=== PATIENT | male | born 1960 | race African-American/Black ===

== ENCOUNTER → 2018-08-22 | Day surgery (SDC) | payer OTHER ==
[~2018-08-22] MED LIST: CEFTRIAXONE SOD 1 GM/NS 50 ML 50 ML IV ONE; DEXAMETHASONE SOD PHOS INJ 4 MG/ML VIAL ONE; FENTANYL CITRATE/PF 100MCG/2 ML INJ ONE; FLOMAX0.4 MG PO; GENTAMICIN SULFATE 200 MG in SODIUM CHLORIDE 0.9% 100 ML 100 ML IV ONE; LIDOCAINE HCL 2% LOCAL INJ 5 ML SDV VIAL INJ ONE; LIPITOR20 MG PO; METFORMIN HCL500 MG PO; ONDANSETRON HCL INJ 2MG/ML 2ML 2 MG/ML VIAL ONE; PROPOFOL IV EMULSION 10 MG/ML 20 ML VIAL ONE; SEVOFLURANE INHAL SOLN 250 ML PEN BTL ONE
--- OUTSIDE RECORDS SUMMARY | 2018-08-22 07:17 | XMS REPORT | Clinical Summary ---
Author Author [facility] Organization [facility] Address Unknown Phone Unavailable Care Team Providers Care Cabin Agent Name Role Phone Sonny Navarro MD PCP Allergies No Known Allergies Medications End Date Status Medication Sig Dispensed Refills Start Date Active pantoprazole (PROTONIX) TAKE 1 TABLET 30 tablet 2 40 MG EC tablet BY MOUTH 1 7 HOUR BEFORE LUNCH Active atorvastatin (LIPITOR) 40 40 mg daily. 0 MG tablet 7 Active metFORMIN XR daily with 0 (GLUCOPHAGE-XR) 500 mg 24 breakfast. 8 hr tablet Active Problems Problem Noted Date Internal hemorrhoids 06/21/2017 Diaphragmatic hernia without obstruction and without gangrene 06/21/2017 Tubular adenoma of colon 06/21/2017 Diverticulosis large intestine w/o perforation or abscess w/o bleeding 06/21/2017 Encounters Care Team Description Date Type Specialty Sonny Navarro MD Litaker, Jennifer L, RD Diabetes mellitus without complication (Primary Dx) 01/31/2018 Consult Weight Management Malaika Rendon MD Litaker, Jennifer L, RD Diabetes mellitus without complication (Primary Dx) 01/17/2018 Consult Weight Management after 08/21/2017 Social History Date Tobacco Use Types Packs/Day Years Used Current Some Day Smoker Cigars Smokeless Tobacco: Never Used Comments: rarely Alcohol Use Drinks/Week oz/Week Comments Yes occasionally Sex Assigned at Date Recorded Not on file Industry Job Start Date Occupation Not on file Not on file Not on file Travel End Travel History Travel Start No recent travel history available. Last Filed Vital Signs Time Taken Vital Sign Reading - Blood Pressure - - Pulse - - Temperature - - Respiratory Rate - - Oxygen Saturation - - Inhaled Oxygen - Concentration 01/31/2018 7:04 PM CDT Weight 105 kg (232 lb 6.4 oz) 01/31/2018 7:04 PM CDT Height 185.4 cm (6' 1") 01/31/2018 7:04 PM CDT Body Mass Index 30.66 Plan of Treatment Health Maintenance Due Date Last Done Comments DIABETIC RETINAL EYE EXAM 1960 DIABETIC FOOT EXAM 1968 URINE MICROALBUMIN 1968 COLON CANCER SCREENING 2008 SHINGLES VACCINES (#1) 2008 INFLUENZA VACCINE 12/06/2018 Goals Goal Patient Associated Recent Progress Patient-Stat Author Goal Type Problems ed? HM WM Monitoring General No Rekha Valencia RD Note: 01/31/18 Active Will monitor my blood glucose levels 2x/day three times per week HM WM Nutrition General No Rekha Valencia RD Note: 01/31/18 Active Will count my carbohydrates at most of my meals and snacks HM WM Taking Medications General Rekha Escalante RD Note: 01/31/18 Active I will take my medications as scheduled. HM WM Other General No Rekha Valencia RD Note: 01/31/18 Active I will monitor my blood sugar regularly to look for patterns. Results Not on fileafter 08/21/2017 Insurance Payer Benefit Subscriber ID Type Phone Address Plan / Group AETNA AETNA PPO xxxxxxxxxx PPO OPEN CHOICE Advance Directives Patient has advance care planning documents on file. For more information, sharon russo contact: Deandre Knott [address] [place] [address]
[2018-08-22 11:00] VITALS: BP 130/80
--- NOTE | 2018-08-22 17:45 | Operative Report ---
DATE OF PROCEDURE: 08/22/2018 SURGEON: Ronny Mayes MD PREOPERATIVE DIAGNOSES: 1. Benign prostatic hypertrophy. 2. Rule out carcinoma of the prostate. 3. Prostatic intraepithelial neoplasia, left base. OPERATIONS: 1. Transrectal ultrasound of the prostate. 2. Transrectal ultrasound-guided needle biopsies. 3. Cystourethroscopy. BUSINESS ASST: Dr. Jc Damon. ANESTHETIC: General. DESCRIPTION OF PROCEDURE: Mr. Ríos is a 58-year-old male, who presented with a chief complaint of lower urinary tract obstructive symptoms and elevated PSA. This patient has had prostate needle biopsies about six months ago, which showed PIN in the left base. He presented at this time and his PSA has been increasing. This patient was placed on the table in the lithotomy position and transrectal ultrasound of the prostate was performed and the prostate measured 5.68 x 6.1 x 3.7 with a total volume of 31 mL. There were multiple calcification and post calcification shadowing. Both seminal vesicles were unremarkable. This patient was then prepped and draped in a sterile manner. A #23-Andorran cystoscope was used and cystourethroscopy was performed and it was noted that the urethra was normal. The prostatic urethra was inspected and it measured about 5 to 6 cm, trilobar, and occlusive. Cystoscopy was then performed using both right angle and the Foroblique lens, and it was noted that the bladder mucosa was normal with no evidence of gross tumor pathology or any papillary lesions. The bladder wall was mildly trabeculated. The bladder was drained. Cystoscope removed and the patient taken to the recovery room in satisfactory condition. Plan is for this patient is to be placed on Levaquin 500 mg once a day for one week. Ultracet tablet one every 6 to 8 hours p.r.n. and was given 20. He is to return to the office in about one week. Ronny Mayes MD MA/INES /[id number]
--- NOTE | 2018-08-23 23:51 | Diagnostic Imaging Report ---
TECHNIQUE: Transrectal ultrasound of the prostate. Rule out malignancy, biopsy guidance ^[id number] ^0900 FINDINGS: The seminal vesicles are present and unremarkable. The gland size measures 2.9 x 4.5 x 4.6 cm. The volume is 31.51 cm3. The peripheral zone is homogeneous without focal nodules. The transition zone demonstrates prominent BPH nodules particularly in the left lobe. IMPRESSION: As above. Signed by: Dr. Aicha Denise MD on 08/23/2018 11:48 PM
== END | disposition home or self-care (01) ==
LOC: OR 07:14
PROVIDERS: ATTEND Specialist
DX: N40.0 Benign prostatic hyperplasia without lower urinary tract symptoms (principal); N42.31 Prostatic intraepithelial neoplasia; R73.03 Prediabetes; E78.00 Pure hypercholesterolemia, unspecified; Z01.810 Encounter for preprocedural cardiovascular examination
CPT/HCPCS: 36415; 55700; 76872; 76942; 76998; 82948; 88305; 93005; J0696; J1100; J1580; J2001; J2405; J2704; 88304

== ENCOUNTER 2018-12-12 07:23 | Inpatient (IN) | payer OTHER ==
[2018-12-11 11:47] LABS: INR 0.86; PROTHROMBIN TIME 12.2 seconds (11.9-14.5)
[2018-12-11 12:00] LABS: ANION GAP 14.3 mmol/L (8-16); BLOOD UREA NITROGEN 18 mg/dL (7-26); BUN/CREATININE RATIO 14 (6-25); CALCIUM 9.4 mg/dL (8.4-10.2); CARBON DIOXIDE 24 mmol/L (22-29); CHLORIDE 105 mmol/L (98-107); CREATININE, SERUM 1.25 mg/dL (0.72-1.25); EST GLOMERULAR FILTRATION RATE > 60 ML/MIN (60-); GLUCOSE 118 mg/dL (74-118); POTASSIUM 4.3 mmol/L (3.5-5.1); SODIUM 139 mmol/L (136-145)
[2018-12-11 13:47] LABS: BASOPHILS % 0.8 % (0.0-1.0); EOSINOPHILS # (AUTO) 0.1 (0.0-0.4); EOSINOPHILS % 2.5 % (0.0-6.0); HEMATOCRIT 41.6 % (38.2-49.6); HEMOGLOBIN 13.8 g/dL (14.0-18.0); LYMPHOCYTES % 40.7 % (18.0-39.1); MEAN CORPUSCULAR HEMOGLOBIN 30.9 pg (28-32); MEAN CORPUSCULAR HGB CONC 33.2 g/dL (31-35); MEAN CORPUSCULAR VOLUME 93.3 fL (81-99); MONOCYTES # (AUTO) 0.3 (0.2-0.8); MONOCYTES % 6.4 % (4.4-11.3); NEUTROPHILS # (AUTO) 2.4 (2.1-6.9); NEUTROPHILS % 49.4 % (38.7-80.0); PLATELET COUNT 211 x10e3/uL (140-360); RED BLOOD COUNT 4.46 x10e6/uL (4.3-5.7); RED CELL DISTRIBUTION WIDTH 12.8 % (11.7-14.4)
[~2018-12-12] VITALS: Ht 185.4 cm; Wt 107.5 kg
[~2018-12-12 07:23] MED LIST changes: -CEFTRIAXONE SOD 1 GM/NS 50 ML 50 ML IV ONE; -DEXAMETHASONE SOD PHOS INJ 4 MG/ML VIAL ONE; -FENTANYL CITRATE/PF 100MCG/2 ML INJ ONE; -GENTAMICIN SULFATE 200 MG in SODIUM CHLORIDE 0.9% 100 ML 100 ML IV ONE; -LIDOCAINE HCL 2% LOCAL INJ 5 ML SDV VIAL INJ ONE; -ONDANSETRON HCL INJ 2MG/ML 2ML 2 MG/ML VIAL ONE; -PROPOFOL IV EMULSION 10 MG/ML 20 ML VIAL ONE; -SEVOFLURANE INHAL SOLN 250 ML PEN BTL ONE
--- OUTSIDE RECORDS SUMMARY | 2018-12-12 07:30 | XMS REPORT ---
Author Author [facility] Address Unknown Phone Unavailable Care Team Providers Care Beading Sawyer Name Role Phone Jak CORONA Unavailable Unavailable Problems This patient has no known problems. Allergies, Adverse Reactions, Alerts This patient has no known allergies or adverse reactions. Medications This patient has no known medications. Results Test Description Test Time Test Comments Text Results Atomic Results Result Comments PROSTATE-TRANSRECTAL 2018-08-23 23:44:00 [place] [id number] Patient Name: ALFRED JONES MR #: [id number] : 1960 Age/Sex: 58/M Req #: [id number] [facility] Physician: Ordered by: JAIRO CORONA MD Report #: [id number] Location: OR Room/Bed: Procedure: [id number] US/US PROSTATE-TRANSRECTAL Exam Date: 08/22/18 Exam Time: 899 REPORT STATUS: Signed TECHNIQUE: Transrectal ultrasound of the prostate. Rule out malignancy, biopsy guidance [id number] FINDINGS: The seminal vesicles are present and unremarkable. The gland size measures 2.9 x 4.5 x 4.6 cm. The volume is 31.51 cm3. The peripheral zone is homogeneous without focal nodules. The transition zone demonstrates prominent BPH nodules particularly in the left lobe. IMPRESSION: As above. Signed by: Dr. Aicha Denise MD on 08/23/2018 11:48 PM Dictated By: AICHA DENISE MD 47 Transcribed By: ELIZABETH on 08/23/182347 COPY TO: JAIRO CORONA MD
--- OUTSIDE RECORDS SUMMARY | 2018-12-12 07:30 | XMS REPORT | Clinical Summary ---
Author Author [facility] Organization [facility] Address Unknown Phone Unavailable Care Team Providers Care Fast Food Fry Cook Name Role Phone Sonny Navarro MD PCP [...] (Primary Dx) 01/17/2018 Consult Weight Management after 12/11/2017 Social History Date Tobacco Use Types Packs/Day [...] DIABETIC FOOT EXAM 1968 URINE MICROALBUMIN 1968 COLONOSCOPY SCREENING 2008 SHINGLES VACCINES (#1) 2008 INFLUENZA [...] and snacks HM WM Taking Medications General No Rekha Valencia RD Note: 01/31/18 Active I will take my medications as scheduled. HM WM Other General No Rekha Valencia RD Note: 01/31/18 Active I will monitor my blood sugar regularly to look for patterns. Results Not on fileafter 12/11/2017 Insurance Type Payer Benefit Subscriber ID Effective Phone Address Plan / Dates Group PPO AETNA AETNA PPO xxxxxxxxxx [id number] OPEN resent CHOICE Advance Directives Patient has advance care planning documents on file. For more information, sharon russo contact: Deandre Knott [address] [place] [address]
[2018-12-12] MEDS ORDERED: HYOSCYAMINE 0.125 MG TAB ONE (07:45)
[2018-12-12] MEDS ORDERED: LEVOFLOXACIN 500MG/D5W 100ML 100 ML IV ONE (07:45)
[2018-12-12] MEDS ORDERED: LEVOFLOXACIN 250MG/D5W 50ML 50 ML ONE (07:45)
[2018-12-12 11:26] LABS: BASOPHILS % 0.6 % (0.0-1.0); EOSINOPHILS # (AUTO) 0.1 (0.0-0.4); EOSINOPHILS % 1.9 % (0.0-6.0); HEMATOCRIT 37.1 % (38.2-49.6); HEMOGLOBIN 12.3 g/dL (14.0-18.0); LYMPHOCYTES % 31.9 % (18.0-39.1); MEAN CORPUSCULAR HEMOGLOBIN 31.6 pg (28-32); MEAN CORPUSCULAR HGB CONC 33.2 g/dL (31-35); MEAN CORPUSCULAR VOLUME 95.4 fL (81-99); MONOCYTES # (AUTO) 0.3 (0.2-0.8); MONOCYTES % 4.6 % (4.4-11.3); NEUTROPHILS # (AUTO) 3.9 (2.1-6.9); NEUTROPHILS % 60.7 % (38.7-80.0); PLATELET COUNT 160 x10e3/uL (140-360); RED BLOOD COUNT 3.89 x10e6/uL (4.3-5.7)
[2018-12-12 11:42] LABS: ANION GAP 11.7 mmol/L (8-16); BLOOD UREA NITROGEN 19 mg/dL (7-26); BUN/CREATININE RATIO 16 (6-25); CARBON DIOXIDE 21 mmol/L (22-29); CHLORIDE 92 mmol/L (98-107); CREATININE, SERUM 1.22 mg/dL (0.72-1.25); EST GLOMERULAR FILTRATION RATE > 60 ML/MIN (60-); GLUCOSE 119 mg/dL (74-118); POTASSIUM 5.7 mmol/L (3.5-5.1)
[2018-12-12 11:57] LABS: SODIUM 119 mmol/L (136-145)
[2018-12-12] MEDS ORDERED: FUROSEMIDE INJ 10 MG/ML 4 ML VIAL ONE (12:02)
[2018-12-12 12:10] VITALS: BP 128/77
[2018-12-12 12:29] VITALS: BP 128/77
--- NOTE | 2018-12-12 12:29 | NUR ---
Patient received from OR and recovery s/p TURP. Alert and oriented. Patient reports feeling sleepy, but responds to questions and commands with clarity. Denies pain. Patient receiving LR through 20g IV in right hand. 22 Polish amado catheter taped to left leg with traction. Irrigating with sodium chloride. Urine clear and jansen/dark red, as expected for post procedure. Will continue to monitor patient status and urine output. currently at bedside.
--- OUTSIDE RECORDS SUMMARY | 2018-12-12 12:33 | XMS REPORT | Clinical Summary ---
Author Author [facility] Organization [facility] Address Unknown Phone Unavailable Care Team Providers Care Material Handling Supervisor Name Role Phone Sonny Navarro MD PCP [...] more information, sharon russo contact: Deandre Knott [address] [place] [address]
[2018-12-12] MEDS ORDERED: FUROSEMIDE INJ 10 MG/ML 4 ML VIAL IV ONE (13:15)
[2018-12-12] MEDS ORDERED: ONDANSETRON HCL INJ 2MG/ML 2ML 2 MG/ML VIAL IV PRN (13:15)
[2018-12-12] MEDS ORDERED: HYDROMORPHONE 1MG/1ML INJ IV PRN (13:15)
[2018-12-12] MEDS: LEVOFLOXACIN 500MG/D5W 100ML 100 ML IV SCH (13:15)
[2018-12-12] MEDS: DEXTROSE 5%/0.45% SOD CHL 1,000 ML IV SCH ×2 (13:55→21:21)
[2018-12-12] MEDS ORDERED: FENTANYL CITRATE/PF 100MCG/2 ML INJ ONE (14:15)
[2018-12-12] MEDS ORDERED: MIDAZOLAM HCL 2 MG/2 ML VIAL ONE (14:15)
--- NOTE | 2018-12-12 16:05 | Operative Report ---
DATE OF PROCEDURE: 12/12/2018 SURGEON: Ronny Mayes MD PREOPERATIVE DIAGNOSES: 1. Massive prostatic hypertrophy 92 mL per ultrasound. 2. Severe prostatic obstruction, on Flomax x2 daily. 3. Rectal exam showed an enlarged prostate gland about 90 to 100 grams, firm and benign. This patient was placed on the table in the lithotomy position and prepped and draped in a sterile manner after satisfactory anesthesia. A #23 Danish cystoscope was used and cystourethroscopy was performed and the urethra was normal. The prostatic urethra was about 6 cm trilobar and occlusive. Cystoscopy was then performed using both right angle and the Foroblique lens and it was noted that the bladder mucosa was normal with no evidence of gross tumor pathology or any papillary lesions. The urethra was dilated with the Van-Buren sound up to #28 Danish. A #27 Danish resectoscope sheath with Ramsey obturator was then passed through the urethra and to the bladder. The obturator was removed and the YR.MRKT resectoscope was placed. Re-inspection confirmed the previous cystoscopic findings. Resection of the median lobe was done first flattening the bladder neck with the median lobe down to the level of the floor of the prostate. Resection of the prostate was then started from 11 to 7 o'clock starting at the bladder neck to just proximal to the verumontanum and down to the capsular fibers. Hemostasis was obtained all through and was very adequate. Resection of the prostate was then started again from 1 to 5 o' clock again starting at the bladder neck to just proximal to the verumontanum and down to the capsular fibers. Again, hemostasis was very adequate. Finally, the anterior tissue was resected. At the termination of the procedure, it was noted that the bladder mucosa and the external sphincter were intact without any issues. Hemostasis was karen adequate. Estimated blood loss was about 300 mL at most. The resectoscope sheath was removed and #22 Danish Shannon catheter was placed on mild traction with continuous irrigation. Ronny Mayes MD MA/INES /[id number]
[2018-12-12 17:04] VITALS: BP 118/68
[2018-12-12] MEDS ORDERED: LIDOCAINE HCL 2% LOCAL INJ 5 ML SDV VIAL INJ ONE (17:40)
[2018-12-12] MEDS ORDERED: ONDANSETRON HCL INJ 2MG/ML 2ML 2 MG/ML VIAL ONE (17:40)
[2018-12-12] MEDS ORDERED: SEVOFLURANE INHAL SOLN 250 ML PEN BTL ONE (17:40)
[2018-12-12] MEDS ORDERED: DEXAMETHASONE SOD PHOS INJ 4 MG/ML VIAL ONE (17:40)
[2018-12-12] MEDS ORDERED: PROPOFOL IV EMULSION 10 MG/ML 20 ML VIAL ONE (17:40)
--- NOTE | 2018-12-12 18:55 | NUR ---
Handoff report given. Patient c/o of slight headache. Declined pain medication. Cold washcloth given. at bedside.
--- NOTE | 2018-12-12 19:05 | NUR ---
BEDSIDE SHIFT REPORT PERFORMED, RECEIVED PT LAYING SEMI FOWLERS IN BED, LETHARGIC, AAOX3, RR EVEN AND NON-LABORED, ON ROOM AIR. NO S/SX OF DISTRESS NOTED. CDI INFUSION, PALE YELLOW URINE NOTED. LEFT PT LAYING SEMI FOWLERS IN BED, BED IN LOW LOCKED POSITION, SIDE RAILS UPX2, CALL LIGHT AND PHONE WITHIN REACH.
[2018-12-12 20:00] VITALS: BP 121/57
[2018-12-12 20:57] VITALS: BP 121/57
--- NOTE | 2018-12-12 21:32 | NUR ---
SPOKE WITH MD CORONA CONCERNING PT REPORT OF (L) SHOULDER PAIN, PT REFUSING DILAUDID, STATES "IT DOESN'T HURT IT IS JUST DISCOMFORT" NEW ORDERS RECEIVED FOR 1 TIME DOSE OF IBUPROFEN.
[2018-12-12] MEDS ORDERED: IBUPROFEN 400 MG TAB PO ONE (21:45)
[2018-12-12] MEDS ORDERED: PANTOPRAZOLE 40 MG 10ML VIAL IV STA (23:34)
[2018-12-13] VITALS (8 sets, daily range): BP systolic 94–117; BP diastolic 48–64
[2018-12-13] MEDS: DEXTROSE 5%/0.45% SOD CHL 1,000 ML IV SCH ×3 (05:10→23:06)
[2018-12-13 05:44] LABS: BASOPHILS % 0.2 % (0.0-1.0); EOSINOPHILS % 0.2 % (0.0-6.0); HEMATOCRIT 40.6 % (38.2-49.6); HEMOGLOBIN 13.7 g/dL (14.0-18.0); LYMPHOCYTES # (AUTO) 1.5 (1.0-3.2); LYMPHOCYTES % 14.1 % (18.0-39.1); MEAN CORPUSCULAR HGB CONC 33.7 g/dL (31-35); MEAN CORPUSCULAR VOLUME 91.9 fL (81-99); MONOCYTES # (AUTO) 0.8 (0.2-0.8); MONOCYTES % 7.6 % (4.4-11.3); NEUTROPHILS # (AUTO) 8.4 (2.1-6.9); NEUTROPHILS % 77.5 % (38.7-80.0); PLATELET COUNT 198 x10e3/uL (140-360); RED BLOOD COUNT 4.42 x10e6/uL (4.3-5.7); RED CELL DISTRIBUTION WIDTH 12.2 % (11.7-14.4)
[2018-12-13 06:01] LABS: BLOOD UREA NITROGEN 20 mg/dL (7-26); BUN/CREATININE RATIO 17 (6-25); CALCIUM 9.3 mg/dL (8.4-10.2); CARBON DIOXIDE 22 mmol/L (22-29); CHLORIDE 101 mmol/L (98-107); CREATININE, SERUM 1.17 mg/dL (0.72-1.25); EST GLOMERULAR FILTRATION RATE > 60 ML/MIN (60-); GLUCOSE 138 mg/dL (74-118); SODIUM 135 mmol/L (136-145)
[2018-12-13] MEDS: METFORMIN HCL 500 MG TAB PO SCH (08:00)
[2018-12-13] MEDS ORDERED: ATORVASTATIN 20 MG TAB PO SCH (09:00)
[2018-12-13] MEDS: ATORVASTATIN 40 MG TAB PO SCH (09:19)
[2018-12-13] MEDS: TAMSULOSIN HCL 0.4 MG CAP PO SCH (09:19)
--- NOTE | 2018-12-13 09:45 | NUR ---
Orders per Dr. Woodard to hold bladder irrigation and to deflate balloon by 20cc and monitor urine output.
--- NOTE | 2018-12-13 11:59 | NUR ---
Call from Dr. Jefferson and reported characteristics of urine, 400cc pink urine. Will monitor patient today and he will come by tomorrow and discharge patient.
--- NOTE | 2018-12-13 13:00 | NUR ---
Patient OOB and ambulated hallway, sat up on chair for about 2 hours, tolerated all meals, pains well managed, CBI stopped and Shannon draining, will monitor.
[2018-12-13] MEDS: LEVOFLOXACIN 500MG/D5W 100ML 100 ML IV SCH (13:59)
--- NOTE | 2018-12-13 18:54 | NUR ---
BEDSIDE SHIFT REPORT PERFORMED, RECEIVED PT LAYING SEMI FOWLERS IN BED, AAOX3, RR EVEN AND NON-LABORED, ON ROOM AIR. NO S/SX OF DISTRESS NOTED. EM NOTED TO BE DRAINING PALE PINK URINE. LEFT PT LAYING SEMI FOWLERS IN BED, BED IN LOW LOCKED POSITION, SIDE RAILS UPX2, CALL LIGHT AND PHONE WITHIN REACH.
[2018-12-14] VITALS: BP 121/64
[2018-12-14 04:00] VITALS: BP 118/66
[2018-12-14] MEDS: DEXTROSE 5%/0.45% SOD CHL 1,000 ML IV SCH ×2 (05:15→07:37)
--- NOTE | 2018-12-14 07:18 | NUR ---
Rcvd patient in report this am. Patient is asleep in bed. No s/s of distress noted
[2018-12-14 08:00] VITALS: BP 118/64
[2018-12-14] MEDS: ATORVASTATIN 40 MG TAB PO SCH (08:42)
[2018-12-14] MEDS: TAMSULOSIN HCL 0.4 MG CAP PO SCH (08:42)
[2018-12-14] MEDS: METFORMIN HCL 500 MG TAB PO SCH (08:43)
[2018-12-14 08:55] VITALS: BP 118/66
--- NOTE | 2018-12-14 10:43 | NUR ---
Shannon catheter removed. Catheter intact. Denies discomfort.
[2018-12-14 12:00] VITALS: BP 130/72
--- NOTE | 2018-12-14 12:00 | NUR ---
Patient discharged from facility to home. Patient assisted out via staff in wheelchair. Reviewed discharge paperwork, follow up appts and RX's given.
--- NOTE | 2018-12-14 12:33 | NUR ---
Patient voided at this time. 150ml of dark urine noted
--- NOTE | 2018-12-14 12:40 | NUR ---
Removed 20 g peripheral IV. Catheter tip intact. Denies discomfort.
[2018-12-14] MEDS ORDERED: CIPRO500 MG PO (12:53)
[2018-12-14] MEDS ORDERED: ULTRACET TABLE1 EACH PO (12:54)
== END 2018-12-14 13:03 | disposition home or self-care (01) | DRG 713 ==
LOC: OR 07:23 → PACU V 12:27 → MED/SURG 12:40
PROVIDERS: ADMIT Specialist; ATTEND Specialist
PROC: 0VB08ZZ Excision of Prostate, Via Natural or Artificial Opening Endoscopic (ICD-10-PCS; principal; 2018-12-12 09:30)
DX: N40.1 Benign prostatic hyperplasia with lower urinary tract symptoms (principal); N13.8 Other obstructive and reflux uropathy; G47.33 Obstructive sleep apnea (adult) (pediatric); K21.9 Gastro-esophageal reflux disease without esophagitis; E11.9 Type 2 diabetes mellitus without complications
CPT/HCPCS: 36415; 80048; 82948; 85025; 85610; 88305; 93005; J1100; J1170; J1940; J1956; J2001; J2250; J2405; J3010